=== PATIENT | female | born 1960 | race Hispanic/Latino ===

== ENCOUNTER 2019-12-19 13:31 | Outpatient (CLI) | payer OTHER ==
--- NOTE | 2019-12-19 14:15 | ULT ---
THYROID ULTRASOUND INDICATION: History of thyroid cancer and right thyroidectomy TECHNIQUE: Grayscale and color Doppler images were obtained of the thyroid gland. COMPARISON: None FINDINGS: Right thyroid lobe: Surgically absent Thyroid isthmus: The thyroid isthmus measures 0.54 cm. Left thyroid lobe: The left thyroid lobe measures 2.8 x 1.3 x 1.4 cm. There is a 1 cm mixed echogenic ity solid nodule within the medial aspect of the mid left thyroid gland. An additional 8 mm mixed density solid lesion is seen within the superior pole of the left thyroid gland. IMPRESSION: 1. Right thyroidectomy. 2. 2 separate TIRADS 3 lesions involving the left thyroid lobe. In light of the patient's history of thyroid cancer, follow-up evaluation in one year is recommended.
== END 2019-12-19 13:32 | disposition home or self-care (01) ==
LOC: BICULT 13:31
PROVIDERS: ATTEND Internal Medicine Endocrinology, Diabetes & Metabolism
DX: E89.0 Postprocedural hypothyroidism (principal); C73 Malignant neoplasm of thyroid gland
CPT/HCPCS: 76536

== ENCOUNTER 2020-08-22 09:46 | Outpatient (CLI) | payer OTHER | END 2020-08-22 09:47 | disposition home or self-care (01) | LOC: BICMAMMO 09:46 | PROVIDERS: ATTEND Internal Medicine Rheumatology | DX: M85.88 Other specified disorders of bone density and structure, other site (principal) | CPT/HCPCS: 77080 ==

== ENCOUNTER 2020-10-03 09:16 | Outpatient (CLI) | payer OTHER | END 2020-10-03 09:17 | disposition home or self-care (01) | LOC: BICMAMMO 09:16 | PROVIDERS: ATTEND Registered Nurse | DX: Z12.31 Encounter for screening mammogram for malignant neoplasm of breast (principal) | CPT/HCPCS: 77063; 77067 ==

== ENCOUNTER 2020-12-18 10:28 | Outpatient (CLI) | payer OTHER | END 2020-12-18 10:29 | disposition home or self-care (01) | LOC: BICULT 10:28 | PROVIDERS: ATTEND Internal Medicine Endocrinology, Diabetes & Metabolism | DX: E04.2 Nontoxic multinodular goiter (principal); R22.0 Localized swelling, mass and lump, head; E07.89 Other specified disorders of thyroid; Z85.850 Personal history of malignant neoplasm of thyroid; Z98.890 Other specified postprocedural states | CPT/HCPCS: 76536 ==